=== PATIENT | female | born 1985 | race Caucasian/White ===

== ENCOUNTER 2019-12-25 10:23 | Outpatient (CLI) | payer BC, SELFPAY | END 2019-12-25 10:24 | disposition home or self-care (01) | LOC: ANHSURGERY 10:26 | PROVIDERS: PCP Family Medicine; Visit Provider Urology | DX: N39.3 Stress incontinence (female) (male) (principal) | CPT/HCPCS: 87086 ==

== ENCOUNTER 2020-01-01 01:20 | Outpatient (CLI) | payer BC, SELFPAY ==
[2020-01-01 19:01] LABS: SARS-CoV-2 RNA PCR Negative
== END 2020-01-01 01:21 | disposition home or self-care (01) ==
LOC: ANHCOVIDDT 01:20
PROVIDERS: PCP Family Medicine; Visit Provider Urology
DX: Z01.818 Encounter for other preprocedural examination (principal); Z11.59 Encounter for screening for other viral diseases
CPT/HCPCS: 87635; C9803; U0003

== ENCOUNTER 2020-01-03 01:08 | Day surgery (SDC) | payer BC, SELFPAY ==
[2019-12-23 12:27] VITALS: BMI 31.3
[2020-01-03] VITALS (8 sets, daily range): BP systolic 105–123; BP diastolic 57–84; PULSE 64–83; RESP 16–18; TEMP 36.6–37.1; O2SAT 100
[2020-01-03] MEDS: LACTATED RINGERS 1,000 ML 30 ML IV CONT ×2 (09:25→11:09)
--- NOTE | 2020-01-03 10:07 | WPDANESEPPF ---
Anes - Initial Pre Proc Eval Procedure: Operation Date: 01/03/20 10:45 Proposed Procedures p Urethral Sling - Zachary Castro MD Date/Time: 01/03/20 10:07 Surgeon: Zachary Castro MD Pre Op Diagnosis: Stress Incontinence Patient Data Age: 34 Gender: F Height: 5 ft 7 in Weight: 90.1 kg Allergies Allergy/AdvReac Type Severity Reaction Status Date / Time No Known Allergies Allergy Verified 01/03/20 09:04 Home Medications Medication Instructions Recorded Confirmed Type dextroamphetamine-amphetamine 20 mg PO DAILY 12/23/19 01/03/20 History duloxetine 60 mg PO DAILY 12/23/19 01/03/20 History metformin 1,000 mg PO BID 12/23/19 01/03/20 History Patient hx anesthesia problems: none Family hx anesthesia problems: none PMFSH Past Medical History Medical History (Updated 01/03/20 @ 10:05 by Vishnu Cohn MD) ADHD (attention deficit hyperactivity disorder) Depression Family History Family History (Updated 09/22/17 @ 12:58 by DOCTOR UNKNOWN) Father Diabetes mellitus Depression Mother Depression Grandparent Family history of malignant neoplasm of breast Social History Social History Smoking status: Never smoker Alcohol intake: never Spiritual care concerns: No Anes - Eval Final PreProcedure Day of Procedure 01/03/20 10:07 Patient weight: normal Heart: regular rate and rhythm Lungs: clear to auscultation Airway: Mallampati scale class II Neurological: alert and oriented Last oral intake: >/= 8 hours ASA classification: II Emergent: no Anesthetic plan: proceed Anesthesia type and monitoring: general LMA and standard monitoring Informed Consent: The patient's anesthetic plan and its attendant risks and benefits were discussed with the patient/family/POA. Questions were solicited and answers provided to the satisfaction of the patient/family/POA.
--- NOTE | 2020-01-03 10:17 | WPDHPUPDATE1 ---
History and Physical Update Update Date/Time: 01/03/20 10:17 History and Physical has been reviewed, including an updated exam of the patient. There are NO changes in the patient's condition. Risks, benefits, and alternatives have been discussed and questions answered. Patient agrees to proceed with procedure.
[2020-01-03] MEDS: ceFAZolin 2 GM/D5W 50 ML 2 GM/50 ML BAG IVPB (10:34)
[2020-01-03] MEDS: BUPIVACAINE/EPINEPHRINE 0.25% 50 ML VIAL 10 ML INFILTRATE (10:44)
[2020-01-03] MEDS: KETOROLAC 30 MG/ML VIAL (*BKC) IM (10:45)
--- NOTE | 2020-01-03 11:03 | PM.PROC ---
Procedure Note - Detailed Date of procedure: 01/03/20 Pre-op diagnosis: Stress Incontinence Stress urinary incontinence Post-op diagnosis: same Procedure performed: Transobturator Mid-urethral sling Cystoscopy Description of procedure: This is a patient with confirmed stress urinary incontinence. She desires correction. She understands the risks of bleeding, infection, damage to the urinary tract, lack of cure of stress incontinence, recurrence of stress incontinence, postoperative voiding dysfunction including incontinence and retention, need for ancillary procedures to loosen remove the sling, postoperative voiding dysfunction including retention and overactive bladder, hip and leg pain, dyspareunia, mesh related complications including exposure and extrusion. She agrees to proceed. She understands it will not help overactive bladder symptoms if present. She was correctly identified and informed consent obtained. She is brought to the operating room. She was given appropriate anesthesia. She was placed in the dorsal lithotomy position. All pressure points were padded. She was given appropriate perioperative antibiotics and a time-out performed. A Solano catheter is placed. I marked out the thigh incisions anesthetize the skin and made those incisions. I anesthetized the anterior vaginal wall over the mid urethra. I made a 1 cm incision. I dissected out laterally taking great care not to injure the urethra or the vaginal wall. Passed the helical trocars 1st on the left and then on the right from the thigh incision towards the vaginal incision. Sling was connected to the trocars and brought out through the thigh incision. I tensioned the sling appropriately. I cut and removed the plastic sheaths. I closed the incision with 2 0 Vicryl. I then performed cystoscopy. There was no surgical artifact or abnormalities inside the bladder. The urethra was normal without surgical artifact. I cut the excess sling material. I closed the incisions with glue. She was awakened and transferred to the PACU in stable condition. Implants: Mid urethral sling Surgeon: Zachary Castro MD Drains: No Packing: No Pathology: none sent Complications: No immediate complications Condition: stable Disposition: PACU
== END 2020-01-03 13:00 | disposition home or self-care (01) ==
PROVIDERS: PCP Family Medicine; Visit Provider Urology
PROC: (CPT 57288; principal; 2020-01-03 10:45)
DX: N39.3 Stress incontinence (female) (male) (principal); F90.9 Attention-deficit hyperactivity disorder, unspecified type; F32.9 Major depressive disorder, single episode, unspecified; M06.9 Rheumatoid arthritis, unspecified; Z79.84 Long term (current) use of oral hypoglycemic drugs; Z79.899 Other long term (current) drug therapy
CPT/HCPCS: 57288; A9270; C1771; J0690; J1100; J1885; J2250; J2405; J2704; J3010; J7030; J7120

== ENCOUNTER → 2020-05-11 13:25 | Outpatient (CLI) | payer BC, SELFPAY ==
--- NOTE | ~2020-05-11 | US_ITS ---
EXAMINATION: US thyroid EXAM DATE: 05/11/2020 13:46 INDICATION: E04.1 Nontoxic single thyroid nodule . TECHNIQUE: Multiple grayscale and Doppler images of the thyroid were obtained (by a technologist who performed the scan) and subsequently reviewed. Individual nodules and recommendations may be reporte d in accordance with TI-RADS system as designated by the 2017 ACR White Paper TI-RADS committee. Comp hussein is made to prior examination from 06/28/2018. FINDINGS: The right thyroid lobe measures 5.1 x 1.7 x 1.8 cm, the left measuring 5.1 x 1.2 x 5 1.5 cm. There ar e several thyroid nodules, otherwise relatively homogeneous thyroid echogenicity. The nodules in the left thyroid lobe are subcentimeter and not likely clinically significant. Right thyroid lobe has a nodule measuring 2.0 x 0.8 x 1.2 cm, predominantly solid (2 points), hypoech oic (2 points), wider than tall, smooth margin, without echogenic foci, category TR4 for this nodule. On this examination a contiguous smaller nodule inferior to this was also measured as part of this larger nodule, making one of these dimensions slightly larger. Both nodules appear unchanged compared to prior study. IMPRESSION: Multinodular goiter unchanged. Consider 2 year follow-up ultrasound. Reviewed, dictated and finalized at location B. ATTENDANT IMPRESSION: Multinodular goiter unchanged. Consider 2 year follow-up ultrasound .
== END ==
PROVIDERS: Visit Provider Family Medicine
DX: E04.2 Nontoxic multinodular goiter (principal)
CPT/HCPCS: 76536